=== PATIENT | male | born 1990 | race Caucasian/White ===

== ENCOUNTER 2017-03-11 20:56 | Emergency (ER) | payer BC, OTHER ==
[2017-03-11] MEDS ORDERED: Ketorolac 60 MG/2 ML SDV IM ONE (21:28)
--- NOTE | 2017-03-11 22:04 | EDM.PDOC ---
ED HPI GENERAL MEDICAL PROBLEM - General Chief Complaint: Headache Stated Complaint: HEADACHE Time Seen by Provider: 03/11/17 20:59 Source of Information: Reports: Patient, Family History Limitations: Reports: No Limitations - History of Present Illness INITIAL COMMENTS - FREE TEXT/NARRATIVE: 26 y.o. wm with a H/O Kidney Cancer with age 19, came to the ed with frontal/ forehead headache. No Trauma, no N/V/D, no F/C or any other acute medical issues. BP 152/99 pulse 84 Temp 36.6 Pulse ox 98% on RA Onset Date: 03/09/17 Onset Time: 08:00 Duration: Intermittent Location: Reports: Head, Face Quality: Reports: Ache, Dull, Pressure Severity: Moderate Improves with: Reports: Medication, Rest Worsens with: Reports: Movement Context: Reports: Other (started spontaneously) Associated Symptoms: Reports: No Other Symptoms Frontal Headache Pain Score (Numeric/FACES): 6 - Related Data Allergies Allergy/AdvReac Type Severity Reaction Status Date / Time amoxicillin [From Augmentin] Allergy Swelling Verified 03/11/17 21:06 clavulanic acid Allergy Swelling Verified 03/11/17 21:06 [From Augmentin] Home Meds: Home Meds Levofloxacin 500 mg PO DAILY #9 tablet 03/11/17 [Rx] Past Medical History HEENT History: Reports: None Gastrointestinal History: Reports: Chronic Constipation, GERD Genitourinary History: Reports: Other (See Below) Other Genitourinary History: Hx L kidney CA, had bx & CA was removed. Oncologic (Cancer) History: Reports: Renal Other Oncologic History: L renal CA - Infectious Disease History Infectious Disease History: Reports: Chicken Pox - Past Surgical History HEENT Surgical History: Reports: Adenoidectomy, Oral Surgery, Tonsillectomy GI Surgical History: Reports: None Male Surgical History: Reports: Other (See Below) Other Male Surgeries/Procedures: L renal CA, encapsulated & removed. Musculoskeletal Surgical History: Reports: Shoulder Surgery Other Musculoskeletal Surgeries/Procedures:: L rotator cuff surgery Oncologic Surgical History: Reports: Lumpectomy Social & Family History - Family History Family Medical History: Noncontributory - Tobacco Use Smoking Status *Q: Former Smoker Years of Tobacco use: 7 Used Tobacco, but Quit: Yes Month Tobacco Last Used: unknown - Caffeine Use Caffeine Use: Reports: Energy Drinks, Soda - Recreational Drug Use Recreational Drug Use: No ED ROS GENERAL - Review of Systems Review Of Systems: See Below Constitutional: Reports: No Symptoms HEENT: Reports: Sinus Problem Respiratory: Reports: No Symptoms Cardiovascular: Reports: No Symptoms Endocrine: Reports: No Symptoms GI/Abdominal: Reports: No Symptoms : Reports: No Symptoms Musculoskeletal: Reports: No Symptoms Skin: Reports: No Symptoms Neurological: Reports: No Symptoms Psychiatric: Reports: No Symptoms Hematologic/Lymphatic: Reports: No Symptoms Immunologic: Reports: No Symptoms - Physical Exam Exam: See Below Exam Limited By: No Limitations General Appearance: Alert, WD/WN, Mild Distress Eye Exam: Bilateral Eye: Normal Inspection Ears: Normal External Exam Nose: Normal Inspection Throat/Mouth: Normal Inspection, Normal Lips Head Exam: Atraumatic, Normocephalic Neck: Normal Inspection, Supple, Non-Tender Respiratory/Chest: No Respiratory Distress, Lungs Clear, Normal Breath Sounds Cardiovascular: Normal Peripheral Pulses, Regular Rate, Rhythm, No Edema, No Gallop GI/Abdominal: Normal Bowel Sounds, Soft, Non-Tender, No Organomegaly (Male) Exam: No Hernia Rectal (Males) Exam: Deferred Neuro Exam (Abbreviated): Alert, Oriented, CN II-XII Intact, Normal Cognition, Normal Gait Back Exam: Normal Inspection, Full Range of Motion Extremities: Normal Inspection, Normal Range of Motion, Non-Tender, No Pedal Edema Psychiatric: Normal Affect, Normal Mood Skin Exam: Warm, Dry, Intact, Normal Color, No Rash Course - Vital Signs Text/Narrative:: 26 y.o. wm with a H/O Kidney Cancer with age 19, came to the ed with frontal/ forehead headache. No Trauma, no N/V/D, no F/C or any other acute medical issues. BP 152/99 pulse 84 Temp 36.6 Pulse ox 98% on RA PE: Sinus tenderness Imaging: CT Maxsinus: Pansinusitis Impression: Pansinusitis, tension headache Tx: Toradol, Levoquine Reexam: Improved Plan: D/C with instructions Last Recorded V/S: Last Vital Signs Temp 36.8 C 03/11/17 20:59 Pulse 84 03/11/17 20:59 Resp 18 03/11/17 22:25 BP 148/87 H 03/11/17 22:25 Pulse Ox 99 03/11/17 22:25 - Orders/Labs/Meds Orders: Active Orders 24 hr Category Date Time Status Max Facial Sinus wo Cont [CT] Stat Exams 03/11/17 21:29 Taken Meds: Medications Discontinued Medications Generic Name Dose Route Start Last Admin Trade Name Verena PRN Reason Stop Dose Admin Ketorolac Tromethamine 60 mg 03/11/17 21:28 03/11/17 21:36 Toradol IM 03/11/17 21:29 60 mg ONETIME ONE Administration Levofloxacin 500 mg 03/11/17 22:26 03/11/17 22:31 Levaquin PO 03/11/17 22:27 500 mg ONETIME STA Administration Departure - Departure Time of Disposition: 22:31 Disposition: Home, Self-Care 01 Condition: Good Clinical Impression: Acute pansinusitis - Discharge Information Prescriptions: Levofloxacin 500 mg PO DAILY #9 tablet Instructions: Sinusitis, Adult Referrals: PCP,None [Primary Care Provider] - Forms: ED Department Discharge Additional Instructions: Please take Motrin for pain as needed, increase fluids, please take the Levaquin as recommended, please follow up with regular MD when antibiotics completed, come back if your symptoms get worse acutely. - My Orders Last 24 Hours: My Active Orders 03/11/17 21:29 Max Facial Sinus wo Cont [CT] Stat - Assessment/Plan Last 24 Hours: My Active Orders 03/11/17 21:29 Max Facial Sinus wo Cont [CT] Stat
[2017-03-11] MEDS ORDERED: Levofloxacin 250 MG Tab PO STA (22:26)
== END 2017-03-11 22:42 | disposition home or self-care (01) ==
LOC: FB.ED 20:56
DX: J01.40 Acute pansinusitis, unspecified (principal); Z88.1 Allergy status to other antibiotic agents; Z88.8 Allergy status to other drugs, medicaments and biological substances; Z79.899 Other long term (current) drug therapy; Z87.891 Personal history of nicotine dependence
CPT/HCPCS: 70486; 96372; 99284; A9270; J1885

== ENCOUNTER 2017-07-21 20:20 | Emergency (ER) | payer BC ==
--- NOTE | 2017-07-22 09:29 | ER ---
DATE SEEN: 07/21/2017 TIME SEEN: The patient was seen at 2045 hours. CHIEF COMPLAINT: Onset this noon of nausea, vomiting x4, bloating, mild abdominal discomfort, mild headache, and associated myalgia. His had the same symptoms 2 weeks ago, and also this weekend. He had 4 episodes of diarrhea today that were watery in character. The patient denies fever, neck stiffness, or sore throat. He denies blood in the stool or black tarry stools. He also has associated mild headache. PAST MEDICAL HISTORY: Significant for previous shoulder surgery. No appendectomy or hernia surgery or T and A. He has not had his influenza shot. He is not a smoker. Heart rate is in the 80s. He has never had any major illnesses or hospitalizations. MEDICATIONS: None. ALLERGIES: Amoxicillin with clavulanic acid. SOCIAL HISTORY: Job, he works managing a farm. He is up as early as 3 to 5 a.m. every morning. REVIEW OF SYSTEMS: Negative except for what was noted in the HPI. PHYSICAL EXAMINATION: VITAL SIGNS: Blood pressure 133/73, mean arterial pressure is 93, respiratory rate 17, temperature 36.7 degrees Centigrade, and oxygen saturation 100%. His weight is 95.25 kg, BMI is 31.9 kg/m2. GENERAL: The patient is in mild distress. He feels sicker than he appears. Mildly overweight. HEENT: Pharynx without erythema. TMs, moderate scarring. The left TM with some pockets. No fluid level demonstrated. Right TM is normal in appearance, mild scarring less than the left TM. No sinus pressure. No nasal pressure. Mild turbinate enlargement. Minimal shiners. No frontal or maxillary sinus tenderness. NECK: No cervical adenopathy. No masses in the neck. No tracheal tug. No tracheal deviation. LUNGS: Clear without rales, rhonchi, or wheezes. HEART: S1 and S2. No murmur. ABDOMEN: Soft, but mild discomfort. 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 No heel jar, guarding, or rebound. GENITALIA: Not examined. No hernia noted. EXTREMITIES: Without tenderness, but mild myalgia. No ropy vascular structures. No pedal edema. LABORATORY DATA: Influenza A and B and also strep test screen are negative. ASSESSMENT: Viremia with associated symptoms. The patient is to use 1000 mg of Tylenol and 500 mg of ibuprofen q.6 hours for elevated temperature and muscle aches. Gradually progressively increase his activity as tolerated. Currently, he is drinking 64 ounces of fluid. He should drink more to diminish any dehydration. OTHER DIAGNOSIS: Status post left shoulder surgery. PLAN: The patient is to follow up with doctor in 5 to 7 days or earlier if worse, and if he has worse diarrhea, may require intravenous infusion. At present, he is not dehydrated. He has done well to keep himself orally hydrated. He will use flavored Pedialyte and to avoid the disaccharides in Gatorade. /[id number] JAVON/PETROS
== END 2017-07-21 21:31 | disposition home or self-care (01) ==
LOC: FB.ED 20:20
DX: B34.9 Viral infection, unspecified (principal); Z88.1 Allergy status to other antibiotic agents
CPT/HCPCS: 87081; 87804; 87804-59; 87880-QW; 99283